=== PATIENT | female | born 1975 | race Caucasian/White ===

== ENCOUNTER → 2017-04-01 | Outpatient (CLI) | payer OTHER ==
[2017-04-01 13:02] LABS: ASPARTATE AMINO TRANSFERASE 17 U/L (15-37); BLOOD UREA NITROGEN 8 mg/dL (7-18)
== END | disposition home or self-care (01) ==
LOC: CFH 11:29
PROVIDERS: ATTEND Family Medicine
DX: M43.17 Spondylolisthesis, lumbosacral region (principal); M54.6 Pain in thoracic spine
CPT/HCPCS: 36415; 72072; 72100; 80053; 85025

== ENCOUNTER 2017-10-19 09:52 | Emergency (ER) | payer OTHER ==
[~2017-10-19] VITALS: Ht 165.1 cm; Wt 68.6 kg
[2017-10-19] MEDS ORDERED: SODIUM CHLORIDE 0.9% 1,000 ML IV ONE (10:22)
[2017-10-19] MEDS ORDERED: SODIUM CHLORIDE FLUSH 10ML SYR IVF ONE (10:30)
[2017-10-19] MEDS ORDERED: ASPIRIN 81 MG TABLET CHEW PO ONE (10:30)
[2017-10-19] MEDS ORDERED: KETOROLAC 30 MG/1 ML IVPush ONE (10:30)
[2017-10-19] MEDS ORDERED: ASPIRIN 81 MG TABLET CHEW ONE (10:31)
[2017-10-19] MEDS ORDERED: KETOROLAC 30 MG/1 ML ONE (10:31)
[2017-10-19 10:46] LABS: HEMATOCRIT 42.2 % (34.6-47.8); HEMOGLOBIN 14.2 g/dL (11.7-16.4); WHITE BLOOD COUNT 7.3 x10^3/uL (3.4-10)
[2017-10-19 10:58] LABS: BLOOD UREA NITROGEN 10 mg/dL (7-18)
[2017-10-19] MEDS ORDERED: OMNIPAQUE 350 MG/ML, 100ML BOTTLE ONE (13:02)
[2017-10-19 13:40] VITALS: BP 144/85
== END 2017-10-19 14:32 | disposition home or self-care (01) ==
LOC: ED 10:25
DX: M94.0 Chondrocostal junction syndrome [Tietze] (principal)
CPT/HCPCS: 36415; 71020; 71275; 80048; 82040; 84484; 84703; 85025; 93005; 96361; 96374; 99285; J1885; J7030; Q9967

== ENCOUNTER 2017-10-21 12:23 | Emergency (ER) | payer OTHER ==
[~2017-10-21] VITALS: Ht 157.5 cm; Wt 67.0 kg
[2017-10-21] MEDS ORDERED: FAMOTIDINE 20 MG/2 ML IVP ONE (13:00)
[2017-10-21] MEDS ORDERED: ONDANSETRON 2MG/ML, 2ML IVPush ONE (13:00)
[2017-10-21] MEDS ORDERED: KETOROLAC 30 MG/1 ML IVPush ONE (13:00)
[2017-10-21] MEDS ORDERED: SODIUM CHLORIDE FLUSH 10ML SYR IVF ONE (13:00)
[2017-10-21] MEDS ORDERED: MAALOX/HYOSCYAMINE/LIDOCAINE 45 ML BTL PO ONE (13:00)
[2017-10-21] MEDS ORDERED: SODIUM CHLORIDE 0.9% 1,000ML IVBOLUS ONE (13:00)
[2017-10-21] MEDS ORDERED: KETOROLAC 30 MG/1 ML ONE (13:26)
[2017-10-21] MEDS ORDERED: ONDANSETRON 2MG/ML, 2ML ONE (13:26)
[2017-10-21] MEDS ORDERED: MAALOX/HYOSCYAMINE/LIDOCAINE 45 ML BTL ONE (13:26)
[2017-10-21] MEDS ORDERED: FAMOTIDINE 20 MG/2 ML ONE (13:26)
[2017-10-21 13:44] LABS: HEMATOCRIT 39.1 % (34.6-47.8); HEMOGLOBIN 13.4 g/dL (11.7-16.4); WHITE BLOOD COUNT 8.4 x10^3/uL (3.4-10)
[2017-10-21 13:54] LABS: BLOOD UREA NITROGEN 17 mg/dL (7-18)
[2017-10-21 14:25] VITALS: BP 121/76
== END 2017-10-21 14:27 | disposition home or self-care (01) ==
LOC: ED 14:20
DX: R51 Headache (principal); R11.2 Nausea with vomiting, unspecified; E86.0 Dehydration
CPT/HCPCS: 36415; 80048; 82040; 85025; 93005; 96361; 96374; 96375; 99285; J1885; J2405; J7030; S0028